=== PATIENT | male | born 1985 | race Caucasian/White ===

== ENCOUNTER 2016-06-30 09:36 | Emergency (ER) | payer OTHER ==
[~2016-06-30] VITALS: Ht 162.5 cm; Wt 54.4 kg
[2016-06-30] MEDS ORDERED: SILVADENE,SSD C50 GM T (10:04)
== END 2016-06-30 11:23 | disposition home or self-care (01) ==
LOC: ED 09:36
DX: T22.212A Burn of second degree of left forearm, initial encounter (principal); T24.212A Burn of second degree of left thigh, initial encounter; X19.XXXA Contact with other heat and hot substances, initial encounter; Y93.89 Activity, other specified; Y92.89 Other specified places as the place of occurrence of the external cause; Y99.8 Other external cause status

== ENCOUNTER → 2020-11-27 | Outpatient (CLI) | payer OTHER ==
[~2020-11-27] MED LIST: SILVADENE,SSD C50 GM T
== END | disposition home or self-care (01) ==
LOC: COVID19 15:12
PROVIDERS: ATTEND Hospitalist
DX: U07.1 COVID-19 (principal)